=== PATIENT | female | born 1995 ===

== ENCOUNTER 2022-11-04 20:35 | Day surgery (SDC) | payer SELFPAY ==
[2022-11-04] MEDS ORDERED: hydrALAZINE 20 MG/ML VIAL SLOW IVP PRN (21:10)
[2022-11-04 21:55] VITALS: BMI 35.0
== END 2022-11-04 22:30 | disposition home or self-care (01) ==
LOC: CSHLD/OP 20:35
PROVIDERS: ATTEND Obstetrics & Gynecology
DX: O36.8130 Decreased fetal movements, third trimester, not applicable or unspecified (principal); O10.913 Unspecified pre-existing hypertension complicating pregnancy, third trimester; Z79.899 Other long term (current) drug therapy; Z90.49 Acquired absence of other specified parts of digestive tract; Z3A.30 30 weeks gestation of pregnancy
CPT/HCPCS: 76819; 99282